=== PATIENT | male | born 1960 | race African-American/Black ===

== ENCOUNTER 2024-08-23 06:50 | Emergency (ER) | payer MEDICARE, OTHER ==
[~2024-08-23] VITALS: Ht 165.1 cm; Wt 77.2 kg
[~2024-08-23 06:50] MED LIST: CEPH-558 PO; FLUT16H NASAL; GABA-1554 PO; KETO120S13 TP; LISI-1024 PO; LOSA100T59 PO; OMEP20CA12 PO; OXYC-618 PO; TAMS0.4C94 PO; TRIA15CR49 TP
[2024-08-23 07:05] VITALS: TEMP 97.4
[2024-08-23 07:21] LABS: GLUCOMETER DEV NAME(LOC) ER.7; GLUCOSE,POINT OF CARE 173 MG/DL (70-110)
[2024-08-23] MEDS: IBUPROFEN 600 MG TABLET PO ONE (11:09)
[2024-08-23] MEDS: OxyCODONE HCL/ACETAMINOPHEN 5-325 MG TABLET PO ONE (11:09)
[2024-08-23 11:45] VITALS: BP 127/64; PULSE 69; RESP 16; O2SAT 98
== END 2024-08-23 11:56 | disposition home or self-care (01) ==
LOC: EMS 06:56
DX: M79.671 Pain in right foot (principal); M79.672 Pain in left foot; E78.00 Pure hypercholesterolemia, unspecified; K21.9 Gastro-esophageal reflux disease without esophagitis; I10 Essential (primary) hypertension; G43.909 Migraine, unspecified, not intractable, without status migrainosus; Z98.890 Other specified postprocedural states; Z59.00 Homelessness unspecified; Z79.899 Other long term (current) drug therapy
CPT/HCPCS: 82962; 99283

== ENCOUNTER 2024-08-24 06:35 | Emergency (ER) | payer MEDICARE, OTHER ==
[~2024-08-24] VITALS: Ht 165.1 cm; Wt 77.2 kg
[2024-08-24 06:43] VITALS: BP 143/80; PULSE 88; RESP 17; TEMP 97.6; O2SAT 98
[2024-08-24 09:41] LABS: GLUCOMETER DEV NAME(LOC) ERT.7; GLUCOSE,POINT OF CARE 180 MG/DL (70-110)
[2024-08-24] MEDS: ACETAMINOPHEN 325 MG TABLET PO ONE (10:43)
== END 2024-08-24 11:03 | disposition home or self-care (01) ==
LOC: EMS 06:51
DX: M79.671 Pain in right foot (principal); M79.672 Pain in left foot; K21.9 Gastro-esophageal reflux disease without esophagitis; E78.00 Pure hypercholesterolemia, unspecified; E11.40 Type 2 diabetes mellitus with diabetic neuropathy, unspecified; I10 Essential (primary) hypertension; G43.909 Migraine, unspecified, not intractable, without status migrainosus; G89.29 Other chronic pain; N40.0 Benign prostatic hyperplasia without lower urinary tract symptoms; Z98.890 Other specified postprocedural states; Z59.00 Homelessness unspecified; Z79.899 Other long term (current) drug therapy
CPT/HCPCS: 82962; 99282